=== PATIENT | female | born 1955 | race Caucasian/White ===

== ENCOUNTER 2020-05-26 14:43 | Observation (INO) | payer OTHER, SELFPAY ==
[~2020-05-26] VITALS: Ht 167.6 cm; Wt 104.3 kg
[2020-05-26 14:52] VITALS: BP 111/83
--- NOTE | 2020-05-26 14:53 | NUR ---
PT W/C ASSISTED TO BED 8.
[2020-05-26] MEDS ORDERED: NACL 0.9% 1,000 ML IV STA (15:09)
[2020-05-26] MEDS ORDERED: ASPIRIN 325 MG TAB PO ONE (15:10)
[2020-05-26] MEDS ORDERED: KETOROLAC 15 MG/ML VIAL IVP ONE (15:10)
[2020-05-26 15:43] LABS: BASOPHILS % (AUTO) 0.2 % (0.0-2.0); EOSINOPHILS % (AUTO) 0.1 % (0.0-4.0); HEMATOCRIT 43.1 % (36-48); HEMOGLOBIN 14.2 g/dL (12.0-16.0); LYMPHOCYTES % (AUTO) 12.6 % (20.5-51.1); MEAN CORPUSCULAR HEMOGLOBIN 32 pg (27-31); MEAN CORPUSCULAR HGB CONC 33 g/dL (33-37); MEAN CORPUSCULAR VOLUME 96.9 fL (80-94); MONOCYTES # (AUTO) 0.2 K/uL (0.8-1.0); MONOCYTES % (AUTO) 3.2 % (1.7-9.3); NEUTROPHILS # (AUTO) 6.6 K/uL (1.8-7.7); NEUTROPHILS % (AUTO) 83.9 % (42.2-75.2); PLATELET COUNT (AUTO) 155 K/uL (140-450); RED BLOOD CELL COUNT(AUTO) 4.44 MIL/uL (4.20-5.40); RED CELL DISTRIBUTION WIDTH 14.4 % (11.6-13.7); WHITE BLOOD COUNT (AUTO) 7.8 K/uL (4.8-10.8)
--- NOTE | 2020-05-26 15:49 | NUR ---
PT BROUGHT IN BY DAUGHTER FOR SOB AND COUGH X 3 DAYS. DAUGHTER STATES PT WAS AT [facility] AND JUST FINISHED AZITHROMYCIN TREATMENT BUT IS STILL HAVING DIFFICULTY WITH BREATHING AND SYMPTOMS. PT ALERT AND AWAKE, BREATHING TACHYPNEA RR 30, LUNGS WHEEZING ON EXPIRATION, SPO2 96% ON RA. SKIN WARM AND DRY. BED IN LOWEST POSITION, LOCKED, BED RAIL UPX1. PMH - DM2, HTN, AFIB, PARKINSONS, DEMENTIA ALLERGIES - SULFA, KEFLEX, MORPHINE
[2020-05-26 16:09] LABS: ALBUMIN 3.6 g/dL (3.4-5.0); ANION GAP 22.4 (8-16); CREATININE 1.1 mg/dL (0.6-1.3); POTASSIUM 4.4 mmol/L (3.5-5.1)
--- NOTE | 2020-05-26 16:13 | NUR ---
COVID, MARY, FLU, AND RSV SWABS SENT TO LAB
[2020-05-26 16:26] LABS: APPEARANCE,URINE CLEAR (CLEAR); BILIRUBIN,URINE NEGATIVE (NEGATIVE); BLOOD, URINE TRACE-I (NEGATIVE); COLOR,URINE YELLOW (YELLOW); LEUKOCYTE ESTERASE ,URINE NEGATIVE (NEGATIVE); NITRITE, URINE NEGATIVE (NEGATIVE); PH,URINE 5.5 (5.0-9.0); UGLUCOSE 3+ (NEGATIVE)
[2020-05-26 16:28] LABS: PROTHROMBIN TIME 10.4 secs (10.8-13.4)
[2020-05-26 16:36] LABS: RBC,URINE 0-5 /HPF (0-5); WBC,URINE 0-5 /HPF (0-5)
[2020-05-26] MEDS ORDERED: INSULIN REGULAR, HUMAN 100 UNIT/ML VIAL IV STA (16:42)
[2020-05-26] MEDS ORDERED: INSULIN REGULAR, HUMAN 100 UNIT/ML VIAL IVP STA (16:56)
[2020-05-26 17:05] LABS: RSV NEGATIVE (NEGATIVE)
--- NOTE | 2020-05-26 18:09 | NUR ---
PT RESTING WITH EYES CLOSED, BREATHING EVEN AND UNLABORED. NO DISTRESS NOTED.
--- NOTE | 2020-05-26 19:06 | NUR ---
REPORT GIVEN TO EMIR CRAWFORD, TRANSFER OF CARE AT THIS TIME
[2020-05-26] MEDS ORDERED: ONDANSETRON 4 MG/2 ML VIAL IVP PRN (19:15)
[2020-05-26] MEDS ORDERED: ALBUTEROL 0.083% 2.5 MG/3 ML NEBU INH PRN (19:15)
[2020-05-26] MEDS ORDERED: DEXTROSE 50% 50 ML SYR IVP PRN (19:20)
--- NOTE | 2020-05-26 19:28 | NUR ---
ASSUMED CARE FROM DAY RN. PT A/A/OX4, LAYING IN BED. NO SIGN AND SYMPTOMS OF DISTRESS NOTED. NO COMPLAIN AT THIS TIME. DAUGHTER DONI AT THE BEDSIDE. CALL LIGHT IN REACH.
--- NOTE | 2020-05-26 19:54 | NUR ---
RECEIVED AN ABNORMAL LAB VALUE FROM THE TATTOO TECHNICIAN RENDON REGARDING THE PT LATEST LACTIC ACID 2.6. DR BRADLEY NOTIFIED AND AWARE AND NO FURTHER ORDER GIVEN.
[2020-05-26] MEDS: ENOXAPARIN 40 MG/0.4 ML SYR SUBQ SCH ×2 (21:00→23:51)
--- NOTE | 2020-05-26 21:00 | NUR ---
PT WALKED TO THE BATHROOM TO URINATE AND TOLERATED IT WELL.
--- NOTE | 2020-05-26 22:30 | NUR ---
Patient will be admitted to care of Admited to TELEMETRY FLOOR. Will go to room 117. Belongings list completed. Report to YVETTE HERNANDEZ.
[2020-05-26 22:45] VITALS: BP 130/60
--- NOTE | 2020-05-26 22:45 | NUR ---
RECEIVED PT FROM ED, VIA CHUCK MEDINA, AO X 4, AMBULATORY. PT ABLE TO MAKE NEEDS KNOWN. W/ IV ON THE LEFT AC G 20, PATENT AND INTACT, SALINE LOCK. MRSA DONE. PHYSICAL EXAM DONE. PLACED IN A LOW Addendum: 05/27/20 at 0700 by Emmy Mueller RN PLACED IN A LOW BED, MRSA SWAB DONE, ORIENTED TO UNIT. CALL LIGHT WITHIN REACH. WILL CONTINUE TO MONITOR.
--- NOTE | 2020-05-26 22:45 | NUR ---
PER ENDORSEMENT OF MJ, ER LOVENOX 100 MG WAS NOT GIVEN YET. WILL ADMINISTER LATER.
[2020-05-26] MEDS: BLOOD GLUCOSE MONITORING 1 DEV DEV FS SCH (23:09)
--- NOTE | 2020-05-26 23:10 | NUR ---
PER PER ENDORSEMENT FROM ED, HUMULIN N WAS GIVEN, BUT IT IS SHOWING 6 UNITS WAS GIVEN ONLY. BLOOD GLUCOSE FOR 2100 TAKEN AT THIS TIME, AND PT'S BLOOD GLUCOSE LEVEL REVEALED 279 MG/DL, 6 HRS PAST FROM THE 6 UNITS THAT WAS GIVEN EARLIER, WILL VERIFY WITH . THE INSULIN(HUMALOG REGULAR) COVERAGE IF WILL GIVE BEFORE MIDNIGHT.
[2020-05-26] MEDS ORDERED: ENOXAPARIN 40 MG/0.4 ML SYR SUBQ ONE (23:45)
--- NOTE | 2020-05-27 00:01 | NUR ---
PT C/O OF PAIN IN THE CHEST LEFT SIDED AND RADIATING TO THE LEFT SHOULDER AND LEFT PART OF BACK. WILL INFORM DR. AVILES BUSINESS INTEGRATION MANAGER.
[2020-05-27] MEDS: INSULIN LISPRO SLIDING SCALE 100 UNITS/ML VIAL SUBQ PRN ×4 (00:06→17:02)
--- NOTE | 2020-05-27 00:09 | NUR ---
DR. AVILES ORDERED TORADOL 30 MG IV PUSH Q 6, SALINE LOCK ; INFORMED BLOOD GLUCOSE LEVEL = 279 PER HUMALOG PER SLIDING SCALE ANOTHER 6 UNITS TO BE GIVEN NOW.
[2020-05-27] MEDS ORDERED: KETOROLAC 30 MG/ML VIAL IVP PRN (00:40)
[2020-05-27] MEDS ORDERED: KETOROLAC 30 MG/ML VIAL ONE (00:42)
--- NOTE | 2020-05-27 00:44 | NUR ---
GAVE PT TORADOL 30 MG Q 6 PRN ORDERED, WILL REASSESS PATIENT
--- NOTE | 2020-05-27 02:00 | NUR ---
CHECKED ON PATIENT, ABLE TO AMBULATE, WENT TO THE BATHROOM BY HERSELF
[2020-05-27 04:00] VITALS: BP 120/58
--- NOTE | 2020-05-27 04:03 | NUR ---
PT SLEEPING, NO RESPIRATORY DISTRESS NOTED, DENIES PAIN.
[2020-05-27 05:45] LABS: BASOPHILS % (AUTO) 0.4 % (0.0-2.0); EOSINOPHILS % (AUTO) 0.1 % (0.0-4.0); HEMATOCRIT 39.4 % (36-48); HEMOGLOBIN 13.3 g/dL (12.0-16.0); LYMPHOCYTES % (AUTO) 23.9 % (20.5-51.1); MEAN CORPUSCULAR HEMOGLOBIN 32 pg (27-31); MEAN CORPUSCULAR HGB CONC 34 g/dL (33-37); MEAN CORPUSCULAR VOLUME 95.4 fL (80-94); MONOCYTES # (AUTO) 0.5 K/uL (0.8-1.0); MONOCYTES % (AUTO) 6.3 % (1.7-9.3); NEUTROPHILS # (AUTO) 5.8 K/uL (1.8-7.7); NEUTROPHILS % (AUTO) 69.3 % (42.2-75.2); PLATELET COUNT (AUTO) 151 K/uL (140-450); RED BLOOD CELL COUNT(AUTO) 4.13 MIL/uL (4.20-5.40); WHITE BLOOD COUNT (AUTO) 8.3 K/uL (4.8-10.8)
[2020-05-27] MEDS: BLOOD GLUCOSE MONITORING 1 DEV DEV FS SCH ×3 (05:56→16:59)
[2020-05-27] MEDS: ACETAMINOPHEN 325 MG TAB PO PRN ×2 (06:00→12:48)
[2020-05-27 06:09] LABS: ALBUMIN 3.1 g/dL (3.4-5.0); ANION GAP 10.8 (8-16); CARBON DIOXIDE 26.8 mmol/L (21-32); CREATININE 0.8 mg/dL (0.6-1.3); MAGNESIUM 2.1 mg/dL (1.8-2.4); POTASSIUM 3.6 mmol/L (3.5-5.1); TOTAL BILIRUBIN 0.9 mg/dL (0.0-1.0)
--- NOTE | 2020-05-27 06:37 | NUR ---
PT IN STABLE POSITION, PT BLOOD [id number] GIVEN HUMALOG PER PROTOCOL. AFIB ON TELEMETRY. PT AT THIS TIME A, A O X 4 AMBULATORY, WILL ENDORSE TO NEXT SHIFT.
--- NOTE | 2020-05-27 07:10 | NUR ---
RECEIVED ENDORSEMENT FROM ROLLING UP MACHINE OPERATOR, AWAKE, ALERT, ORIENTED X3, BREATHING SPONTANEOUSLY AT ROOM AIR, NOT IN DISTRESS NOTED. WITH IV CANNULA G 20 AT LEFT AC ON SALINE LOCK NOTED. SAFETY MEASURES IN PLACE AND CONTINUE MONITOR.
[2020-05-27 08:00] VITALS: BP 135/69
--- NOTE | 2020-05-27 08:54 | NUR ---
PATIENT HAS BEEN SCREENED AND CATEGORIZED MODERATE NUTRITION RISK. PATIENT WILL BE SEEN WITHIN 3-5 DAYS OF ADMISSION. 05/29/20 05/31/[address]
[2020-05-27] MEDS ORDERED: ENOXAPARIN 40 MG/0.4 ML SYR SUBQ SCH (09:00)
[2020-05-27] MEDS ORDERED: ASPIRIN 81 MG TAB.CHEW PO SCH (09:00)
[2020-05-27] MEDS ORDERED: ENOXAPARIN 100 MG/ML SYR SUBQ SCH ×2 (09:30→21:00)
--- NOTE | 2020-05-27 09:35 | NUR ---
FULLY AWAKE AND ALERT. DUE MEDICATION GIVEN
--- NOTE | 2020-05-27 11:20 | NUR ---
DC PLANNIN YRS OLD FEMALE PATIENT WAS ADMITTED FROM HOME WITH A DX OF CHEST PAIN. PT HAS A HX OF HTN, DM, A-FIB PARKINSON AND DEMENTIA . CXR SHOWED ENLARGED CARDIAC SILHOUETTE. RAPID COVID TEST AND PCR NEGATIVE. URINE AND BLOOD CULTURE PENDING. ADMINISTERED ACS PROTOCOL ,CONSULTED WITH FRUIT DRYER. DC PLAN TO GO HOME WHEN STABLE CM TO FOLLOW.
--- NOTE | 2020-05-27 11:23 | NUR ---
CONFRIMED WITH RN END TIME OF NORMAL SALINE END TIME OF 6858 05/26/20.
--- NOTE | 2020-05-27 11:25 | NUR ---
OILER HELPER NOTE: Patient's Orientation Unable To Assess Information Provided By DONI LAZARO - DAUGHTER Comments SW WAS UNABLE TO MEET PATIENT AT BEDSIDE DUE TO MEDICAL CONDITION. SW CONTACTED PATIENT'S DAUGHTER DONI TO COMPLETE ASSESSMENT AND VERIFY DEMOGRAPHICS. Orthopaedic Surgeon, Realtionship and Phone Number DONI LAZARO DAUGHTER [phone] Healthcare Power of Therapy Site Coordinator No Does Patient Have a POLST No Identifying Problems No Social Work Triggers Is A Social Work Consult Needed No Mandate Report Filed No Explanation Of Identifying Problems PATIENT IS A 64-YEAR-OLD FEMALE ADMITETD FOR CHEST PAIN. PATIENT HAS PMHX OF COPD, DIABETES, AND HYPERTENSION. DONI REPORTED THAT PATIENT RECEIVES MENTAL HEALTH SERVICES FROM PSYCHOLOGIST DR. CONSTANCE MATA. NO SUBSTANCE ABUSE HISTORY WAS REPORTED. Admitted From Home Pre-Admission Level Of Functioning Status Assist With ADL Level Of Functioning Comment PATIENT REQUIRES ASSISTANCE WITH BATHING, SHOWERING, PREPARING MEALS, AND DISPENSING MEDICATION. Prior Resources/Services Used In Last 12 Months [facility] Prior Resources/Service Comments PATIENT RECEIVES 104 HOURS MONTHLY FROM [facility]. Prior DME Cane Dialysis Comments DONI REPORTED THAT PATIENT DOES NOT RECEIVE DIALYSIS. Living Situation Lives With Family House Patient Had Caregiver Yes Name and Contact Number Of Designated Caregiver FAVIO BOWLES - [phone] Home Support No Caregiver Issues Financial Issues No Known Financial Issue Referral To The Financial Counselor Needed No Factors/Needs No D/C Needs Identified Pt/Rep Participated In Discharge Plan Yes Patient/Family Agress With Discharge Plan Yes Discharge Plan Comments TENTATIVE DISCHARGE PLAN IS FOR PATIENT TO RETURN HOME. DC Plan Status Initiated
[2020-05-27 12:00] VITALS: BP 137/71
--- NOTE | 2020-05-27 12:49 | NUR ---
COMPLAINED MILD LEFT SIDED CHEST PAIN 3/10, TYLENOL 650MG PO ORDERED PRN GIVEN. VITAL SIGNS TAKEN AND RECORDED. STABLE.
--- NOTE | 2020-05-27 14:07 | NUR ---
FULLY AWAKE AND WATCHING TV, NOT IN DISTRESS NOTED
[2020-05-27 16:00] VITALS: BP 116/76
--- NOTE | 2020-05-27 17:52 | NUR ---
DR. SCOTT MADE DISCHARGE ORDER AND CARRIED OUT. CARDIAC SIDE CAN BE DISCHARGE.
--- NOTE | 2020-05-27 18:30 | NUR ---
DISCHARGE PACKET INSTRUCTION PREPARED AND AWAITING FOR THE FAMILY TO RN GASTROENTEROLOGY. IV CANNULA REMOVED AND DRESSING APPLIED.
[2020-05-27 18:53] VITALS: BP 105/58
--- NOTE | 2020-05-27 19:30 | NUR ---
DISCHARGED IN STABLE CONDITION PER WHEELCHAIR ACCOMPANIED WELL TO THE HOSPITAL LOBBY, DAUGHTER INSTRUCTED TO FOLLOW THE PCP AFTER 1 WEEK AND VERBALIZED UNDERSTANDING. NO MEDICATION PRESCRIBE AND NEED TO GO CLINIC OF PCP FOR FOLLOW UP.
== END 2020-05-27 19:30 | disposition home or self-care (01) ==
LOC: MED 14:43 → MTU 19:17
PROVIDERS: ADMIT Internal Medicine; ATTEND Internal Medicine
DX: R07.89 Other chest pain (principal); Z20.828 Contact with and (suspected) exposure to other viral communicable diseases; R05 Cough; R06.02 Shortness of breath; I48.91 Unspecified atrial fibrillation; I11.9 Hypertensive heart disease without heart failure; M94.0 Chondrocostal junction syndrome [Tietze]; E11.9 Type 2 diabetes mellitus without complications; E66.9 Obesity, unspecified; R94.31 Abnormal electrocardiogram [ECG] [EKG]; G20 Parkinson's disease; F02.80 Dementia in other diseases classified elsewhere, unspecified severity, without behavioral disturbance, psychotic disturbance, mood disturbance, and anxiety; Z91.19 Patient's noncompliance with other medical treatment and regimen; Z79.01 Long term (current) use of anticoagulants; Z79.899 Other long term (current) drug therapy; Z88.1 Allergy status to other antibiotic agents; Z88.5 Allergy status to narcotic agent; Z88.2 Allergy status to sulfonamides; Z68.37 Body mass index [BMI] 37.0-37.9, adult
CPT/HCPCS: 36415; 71045; 80053; 81001; 82550; 82553; 82948; 83605; 83735; 83880; 84484; 85025; 85379; 85384; 85610; 85730; 87040; 87081; 87086; 87420; 87426; 87804; 93005; 96361; 96372; 96374; 96375; 99285; G0378; J1650; J1815; J1885; Q0092; U0003

== ENCOUNTER 2022-01-25 13:47 | Inpatient (IN) | payer OTHER ==
[~2022-01-25] VITALS: Ht 167.6 cm; Wt 84.8 kg
[2022-01-25 13:51] VITALS: BP 113/69
--- NOTE | 2022-01-25 14:19 | NUR ---
Saeid howell in [facility] - 01/25/22 at 1420 by KEVIN Patient ambulated to bed 11 with steady/even gait.
[2022-01-25] MEDS ORDERED: ONDANSETRON 4 MG/2 ML VIAL IVP ONE (14:30)
[2022-01-25] MEDS ORDERED: NACL 0.9% 1,000 ML IV SCH (14:30)
[2022-01-25] MEDS ORDERED: fentaNYL citrate 0.05 MG/ML VIAL IVP ONE (14:30)
--- NOTE | 2022-01-25 14:30 | NUR ---
66/F BIB DAUGHTER WITH C/O ABDOMINAL PAIN X3 DAYS, STATING BP AT HOME WAS 134/130 AT HOME AND BS WAS 200. REPORTS NAUSEA, HEADACHE AND DIARRHEA TODAY, DENIES FEVERS, CP, SOB. PATIENT STATES 9/10, PRESSURE/CONSTANT, NON-RADIATING PAIN. CELLULAR TOWER CLIMBER IN PLACE. BED LOCKED IN LOWEST POSITION, SIDE RAILS X 1. DAUGHTER AT BEDSIDE. PMH: HTN, DM, LIVER CANCER, AFIB, PARKINSONS, DEMENTIA ALLERGIES: CEPHALEXIN, MORPHINE, SULFAS
--- NOTE | 2022-01-25 14:31 | NUR ---
PMH: STAGE 1 LIVER CANCER (NOVEMBER/2021), HLD, HTN, DM, PARKINSONS ALLERGIES: SULFA, KEFLEX, MORPHIN (ARM SWELLING, ITCHINESS), LISINOPRIL (COUGH/CHOKE ON SALIVA) SX: CHOLECYSTECTOMY, HYSTERECTOMY, LAPAROTOMY
[2022-01-25 14:45] LABS: APPEARANCE,URINE CLEAR (CLEAR); BILIRUBIN,URINE 1+ (NEGATIVE); BLOOD, URINE TRACE-I (NEGATIVE); COLOR,URINE YELLOW (YELLOW); LEUKOCYTE ESTERASE ,URINE NEGATIVE (NEGATIVE); NITRITE, URINE NEGATIVE (NEGATIVE); UGLUCOSE 3+ (NEGATIVE)
[2022-01-25 14:47] LABS: BASOPHILS # (AUTO) 0.1 K/uL (0.00-0.22); BASOPHILS % (AUTO) 0.7 % (0.0-2.0); EOSINOPHILS # (AUTO) 0.1 K/uL (0-0.4); EOSINOPHILS % (AUTO) 0.8 % (0.0-4.0); HEMATOCRIT 45.1 % (36-48); HEMOGLOBIN 14.9 g/dL (12.0-16.0); LYMPHOCYTES # (AUTO) 1.4 K/uL (2.5-16.5); LYMPHOCYTES % (AUTO) 18.7 % (20.5-51.1); MEAN CORPUSCULAR HEMOGLOBIN 30 pg (27-31); MEAN CORPUSCULAR HGB CONC 33 g/dL (33-37); MEAN CORPUSCULAR VOLUME 89.6 fL (80-94); MONOCYTES # (AUTO) 0.6 K/uL (0.8-1.0); MONOCYTES % (AUTO) 8.1 % (1.7-9.3); NEUTROPHILS # (AUTO) 5.5 K/uL (1.8-7.7); NEUTROPHILS % (AUTO) 71.7 % (42.2-75.2); PLATELET COUNT (AUTO) 230 K/uL (140-450); RED BLOOD CELL COUNT(AUTO) 5.03 MIL/uL (4.20-5.40); RED CELL DISTRIBUTION WIDTH 16.8 % (11.6-13.7); WHITE BLOOD COUNT (AUTO) 7.7 K/uL (4.8-10.8)
[2022-01-25 14:58] LABS: ALBUMIN 3.8 g/dL (3.4-5.0); ANION GAP 13.9 (8-16); CARBON DIOXIDE 27.7 mmol/L (21-32); POTASSIUM 3.6 mmol/L (3.5-5.1); TOTAL BILIRUBIN 0.9 mg/dL (0.0-1.0)
[2022-01-25 15:03] LABS: RBC,URINE FEW /HPF (0-5); WBC,URINE 0-5 /HPF (0-5)
--- NOTE | 2022-01-25 15:10 | NUR ---
PATIENT TRANSPORTED TO CT VIA GURNEY.
--- NOTE | 2022-01-25 15:22 | NUR ---
PATIENT RETURNED FROM [facility] VIA [facility].
--- NOTE | 2022-01-25 15:26 | NUR ---
STATES MINOR RELIEF TO PAIN 8/10; MINOR RELIEF TO NAUSEA.
[2022-01-25] MEDS ORDERED: ATOR20TA PO (16:08)
[2022-01-25] MEDS ORDERED: [UNRECOGNIZED DRUG - CODE] PO (16:08)
[2022-01-25] MEDS ORDERED: RIVA20TA PO (16:08)
[2022-01-25] MEDS ORDERED: METO25TE2 PO (16:08)
[2022-01-25] MEDS ORDERED: METF-346 PO (16:08)
[2022-01-25] MEDS ORDERED: LIFI1DRO OP (16:37)
[2022-01-25] MEDS ORDERED: QUET100T PO (16:37)
[2022-01-25] MEDS ORDERED: CARB1TAB37 PO (16:37)
[2022-01-25] MEDS ORDERED: DONE10TA10 PO (16:37)
[2022-01-25] MEDS ORDERED: VENL37.55 PO (16:37)
[2022-01-25] MEDS ORDERED: LORA10TA19 PO (16:37)
[2022-01-25] MEDS ORDERED: GABA300C PO ×2 (16:38)
[2022-01-25] MEDS ORDERED: OMEP20EC11 PO (16:38)
[2022-01-25] MEDS ORDERED: MEMA10TA PO (16:38)
[2022-01-25] MEDS ORDERED: HYDR-5080 PO (16:38)
--- NOTE | 2022-01-25 16:56 | NUR ---
Patient awaken and states pain is tolerable; 7/10 at this time.
--- NOTE | 2022-01-25 16:56 | NUR ---
Patient resting in semi-fowlers position with both eyes closed. Daughter remains at bedside. manager search engine in place. RR 22; SpO2 97% on room air. Bed locked in lowest position, side rails x 1.
[2022-01-25] MEDS ORDERED: POTASSIUM CHLORIDE 10 MEQ TABER PO PRN (17:20)
[2022-01-25] MEDS ORDERED: MAGNESIUM OXIDE 400 MG TAB PO PRN (17:20)
[2022-01-25] MEDS ORDERED: ONDANSETRON 4 MG/2 ML VIAL IVP PRN (17:20)
[2022-01-25] MEDS ORDERED: MAG SULF 2000 MG/WATER PREMIX 50 ML IV PRN (17:20)
[2022-01-25] MEDS ORDERED: MORPHINE SULFATE 4 MG/ML SYR IVP PRN (17:20)
[2022-01-25] MEDS ORDERED: KCL 20 MEQ/WATER INJ PREMIX 200 ML IV PRN (17:20)
--- NOTE | 2022-01-25 17:41 | NUR ---
Pt c/o headache 05/02. Tylenol PO PRN to be given.
--- NOTE | 2022-01-25 17:41 | NUR ---
Jacey (daughter) [phone] Requesting to be contacted when transferred to [facility]
[2022-01-25] MEDS: ACETAMINOPHEN 325 MG TAB PO PRN (17:51)
[2022-01-25] MEDS: LACTATED RINGERS 1,000 ML IV SCH (18:01)
--- NOTE | 2022-01-25 18:01 | NUR ---
+ relief to headache. 10 pain. rug inspector helper remains in place. All pt needs met.
--- NOTE | 2022-01-25 19:11 | NUR ---
Patient asleep resting in position of comfort. regulatory affairs coordinator in place. VSS. Bed locked in lowest position, side rails x 1.
--- NOTE | 2022-01-25 19:14 | NUR ---
Report received from YVETTE Al. Continuity of pt carfe at this time.
--- NOTE | 2022-01-25 19:14 | NUR ---
Report and transfer of care endorsed to YVETTE Stover.
--- NOTE | 2022-01-25 19:20 | NUR ---
Pt laying in bed locked in lowest position w x2 siderails up for pt safety. pt reports feeling better, but has ongoing abdominal pain 03/01, does not want any pain medication at this time. denies ongoing nausea or other symptoms at this time. breathing even and ulabored. will continue to monitor. LR running at 150ml/hr to R ac, iv cath patent/intact.
--- NOTE | 2022-01-25 19:47 | NUR ---
Patient will be admitted to care of . Admited to MED-SURG. Will go to room 105A. Belongings list completed. Report to YVETTE LOREDO.
[2022-01-25 20:15] VITALS: BP 135/55
--- NOTE | 2022-01-25 20:15 | NUR ---
Admitted from ER TO [facility] , 56 YRS OLD FEMALE, COOPERATIVE with chief complaint of ABDOMINAL PAIN STARTED 3 DAYS AGO. A/OX4. LUNGS CLEAR ON BILATERAL AUSCULTATION. ABDOMEN SOFT, NON-TENDER TO TOUCH, WITH ACTIVE BOWEL SOUNDS ON ALL QUADRANTS. PAIN IN THE ABDOMEN DESCRIBED ON AND OFF PAIN, NON-RADIATING, INTENSITY 7/10 THAT IS NOT RELIEVED BY TAKING NORCO. AMBULATORY USING A CANE. HEAD TO TOE ASSESSMENT DONE WITH CHARGE NURSE FAUSTINO. DISCOLORATION NOTED ON THE LOWER RIGHT LEG. SKIN IS INTACT.oriented to call light, bed, phone,television, bathroom, smoking policy,visiting hours, procedures, ID bracelet on. Belongings list checked.
--- NOTE | 2022-01-25 20:30 | NUR ---
Patient's Plan of Care was discussed and reviewed with ABBY LOREDO.
[2022-01-25] MEDS: HYDROcodone/APAP 5/325 MG 1 TAB TAB PO PRN (23:00)
[2022-01-25] MEDS ORDERED: KETOROLAC 30 MG/ML VIAL IVP PRN (23:35)
--- NOTE | 2022-01-25 23:35 | NUR ---
INFORMED DR. TUCKER PATIENT IS CANNOT HAVE MORPHINE BECAUSE SHE IS ALLERGIC TO IT, ORDERED TORADOL INSTEAD OF MORPHINE.
[2022-01-26] VITALS: BP 108/68
--- NOTE | 2022-01-26 | NUR ---
SLEEPING COMFORTABLY IN BED, RESPIRATION EVEN AND UNLABORED.
[2022-01-26] MEDS ORDERED: KETOROLAC 30 MG/ML VIAL IVP PRN (01:20)
--- NOTE | 2022-01-26 02:00 | NUR ---
LYING ON HER RIGHT SIDE, SLEEPING. NO DISTRESS NOTED.
--- NOTE | 2022-01-26 03:50 | NUR ---
CHECKED PATIENT STILL SLEEPING COMFORTABLY IN BED.
[2022-01-26 04:00] VITALS: BP 126/67
[2022-01-26] MEDS: LACTATED RINGERS 1,000 ML IV SCH ×4 (04:52→21:23)
[2022-01-26] MEDS: ACETAMINOPHEN 325 MG TAB PO PRN (05:35)
--- NOTE | 2022-01-26 05:35 | NUR ---
WITH HEADACHE, MEDICATED WITH TYLENOL PER MD ORDER.
--- NOTE | 2022-01-26 06:35 | NUR ---
NO COMPLAINT OF HEADACHE, RESTING COMFORTABLY IN BED.
--- NOTE | 2022-01-26 07:00 | NUR ---
CONDITION REMAIN STABLE. WILL ENDORSE TO AM SHIFT NURSE FOR CONTINUITY OF CARE.
--- NOTE | 2022-01-26 07:02 | NUR ---
RECEIVED REPORT FROM AIRCRAFT RIVETER NURSE FOR CONTINUITY OF CARE. PT IN BED SLEEPING AT THIS TIME. RESPIRATIONS ARE EVEN AND UNLABORED ON ROOM AIR. NO SIGNS OF DISTRESS NOTED. PT IS ALERT AND ORIENTED X4, ABLE TO VERBALIZE IN [place], ABLE TO FOLLOW COMMANDS. PT IS NPO EXCEPT FOR MEDS AT THIS TIME. ABD IS NONTENDER, NONDISTENDED WITH BOWEL SOUNDS PRESENT. PT IS CONTINENT OF BOWEL AND BLADDER, ABLE TO AMBULATE TO REST ROOM WITH CANE. PT HAS IV TO RAC, 20G. SKIN IS WARM, DRY, AND INTACT. CALL LIGHT WITHIN REACH. ALL SAFETY MEASURES IN PLACE. WILL CONTINUE TO MONITOR.
[2022-01-26 07:30] LABS: BASOPHILS # (AUTO) 0.1 K/uL (0.00-0.22); BASOPHILS % (AUTO) 1.2 % (0.0-2.0); EOSINOPHILS # (AUTO) 0.1 K/uL (0-0.4); EOSINOPHILS % (AUTO) 2.5 % (0.0-4.0); HEMATOCRIT 40.4 % (36-48); HEMOGLOBIN 13.1 g/dL (12.0-16.0); LYMPHOCYTES # (AUTO) 1.9 K/uL (2.5-16.5); LYMPHOCYTES % (AUTO) 38.3 % (20.5-51.1); MEAN CORPUSCULAR HEMOGLOBIN 29 pg (27-31); MEAN CORPUSCULAR HGB CONC 33 g/dL (33-37); MEAN CORPUSCULAR VOLUME 90.4 fL (80-94); MONOCYTES # (AUTO) 0.4 K/uL (0.8-1.0); MONOCYTES % (AUTO) 8.8 % (1.7-9.3); NEUTROPHILS # (AUTO) 2.4 K/uL (1.8-7.7); NEUTROPHILS % (AUTO) 49.2 % (42.2-75.2); PLATELET COUNT (AUTO) 179 K/uL (140-450); RED BLOOD CELL COUNT(AUTO) 4.47 MIL/uL (4.20-5.40); RED CELL DISTRIBUTION WIDTH 16.5 % (11.6-13.7)
[2022-01-26 07:48] LABS: CARBON DIOXIDE 29.7 mmol/L (21-32); CREATININE 0.7 mg/dL (0.6-1.3); MAGNESIUM 1.7 mg/dL (1.8-2.4); POTASSIUM 3.7 mmol/L (3.5-5.1)
[2022-01-26 08:00] VITALS: BP 134/70
--- NOTE | 2022-01-26 08:00 | NUR ---
Patient's Plan of Care was discussed and reviewed with ABBY Clark
[2022-01-26] MEDS: ENOXAPARIN 40 MG/0.4 ML SYR SUBQ SCH (08:17)
--- NOTE | 2022-01-26 08:20 | NUR ---
ADMINISTERED ALL SCHEDULED MEDICATIONS. EDUCATED PT ON MEDS ADMINISTERED. PT VERBALIZED UNDERSTANDING. WILL CONTINUE TO MONITOR.
--- NOTE | 2022-01-26 09:12 | NUR ---
PATIENT HAS BEEN SCREENED AND CATEGORIZED LOW NUTRITION RISK. PATIENT WILL BE SEEN WITHIN 7 DAYS OF ADMISSION. 02/01/[address] Addendum: 01/26/22 at [address] REFERRAL RECEIVED NOT APPLICABLE
--- NOTE | 2022-01-26 12:25 | NUR ---
DR JOHNSON HERE TO SEE PT. PLACED ORDERS FOR NPO, PT SCHEDULED FOR I&D TONIGHT. WILL CONTINUE TO MONITOR. Addendum: 01/26/22 at 1357 by Amber Mix LVN DISREGARD THIS NOTE.
--- NOTE | 2022-01-26 12:36 | NUR ---
DID ROUNDS ON PT. FAMILY AT BEDSIDE. FAMILY REQUESTING UPDATE. GAVE UPDATE. ANSWERED ALL QUESTIONS. NO COMPLAINTS OF PAIN OR DISCOMFORT AT THIS TIME. WILL CONTINUE TO MONITOR.
--- NOTE | 2022-01-26 14:00 | NUR ---
DC PLANNING PATIENT IS A 66 YEAR OLD FEMALE ADMITTED IN THE [facility]/ED ON 01/25/2022. DUE TO ABDOMINAL PAIN FOR ABOUT 3 DAYS PATIENT HAS MEDICAL HISTORY OF PAROXYSMAL A FIB, HYPERTENSION TYPE 2 DIABETES,AND PARKINSON'S DISORDER. (PATIENT IS TURKS AND [place] ISLANDER SPEAKING). SW MET WITH PATIENT AT BEDSIDE TO DISCUSS AND GATHER PATIENT COLLATERAL INFORMATION, PATIENT WAS AWAKE AND ALERT ABLE TO PROVIDE HER OWN HISTORY PATIENT REPORTED LIVING AT HOME WITH HER ADULT DAUGHTER AND GRANDCHILDREN. REPORTED HAVING GOOD FAMILY SUPPORT. PER PATIENT SHE HAS A. D ALREADY IN PLACE DONE BY HER DAUGHTER AND WAS NOT INTERESTED ON GETTING INF. FORMS PROVIDED BY [facility]. PER PATIENT HER DAUGHTER DONI LAZARO IS HER EMERGENCY CONTACT AND HER MEDICAL DECISION MAKER. PER PATIENT SHE HAS A PCP DR. HARSHAL KOROMA THAT VISITS IN [facility] LAST APPOINTMENT WAS ABOUT A MONTH AGO. WHEN [facility] OFFERED PATIENT TO MAKE A FOLLOW UP APPOINTMENT FOR PATIENT WITH HER PCP AFTER HER DISCHARGE FROM [facility] PATIENT DECLINED AND STATED THAT HER DAUGHTER DONI WILL MAKE HER APPOINTMENT. PER PATIENT SHE HAS NO ISSUES GETTING HER MEDICATION FROM THE [facility] IN [facility]. PATIENT ALSO REPORTED HAVING A CANE AND A WALKER HER ONLY DME AT HOME. PATIENT STATED THAT WHEN SHE IS READY FOR DISCHARGE HER DAUGHTER WILL BE PICKING HER UP AND TAKE HER HOME. SW WILL FOLLOW UP NEEDED.
--- NOTE | 2022-01-26 15:39 | NUR ---
PT STATES SHE FEELS A LITTLE MORE TIRED THAN USUAL. ASKED FOR ASSISTANCE TO REST ROOM. ASSISTED PT TO RESTROOM. PT TOLERATED WELL. WILL CONTINUE TO MONITOR.
[2022-01-26 16:00] VITALS: BP 137/69
--- NOTE | 2022-01-26 16:01 | NUR ---
DC PLANNIN YRS OLD FEMALE PATIENT WAS ADMITTED FROM HOME WITH A DX OF ACUTE PANCREATITIS. PT HAS A HX OF HTN, DM, A-FIB PARKINSON AND DEMENTIA . CT ABD/PELVIS SHOWED ISODENSE LESION ARISING FROM THE LEFT KIDNEY MAY REPRESENT HEMORRHAGIC CYST OR SOLID LESIONS. RENAL US SHOWED LEFT RENAL CYST NO HYDRONEPHROSIS. RAPID COVID TEST NEGATIVE. URINE AND BLOOD CULTURE PENDING. ADMINISTERED IVF AND PAIN MEDS WITH NORCO. DC PLAN TO GO HOME WHEN STABLE CM TO FOLLOW.
[2022-01-26] MEDS: HYDROcodone/APAP 5/325 MG 1 TAB TAB PO PRN (16:18)
--- NOTE | 2022-01-26 17:20 | NUR ---
PT WAS GIVEN NORCO AT 1618. WENT TO RE-ASSES PT PAIN LEVEL. PT SLEEPING AT THIS TIME. WILL CONTINUE TO MONITOR.
--- NOTE | 2022-01-26 19:15 | NUR ---
ENDORSED PT TO UNPAID INTERN NURSE FOR CONTINUITY OF CARE. PT IS STABLE.
--- NOTE | 2022-01-26 19:16 | NUR ---
RECEIVED PATIENT IN BED ALERT AND ORIENTED X 4. PATIENT WAS ENDORSED BY MICHELLE MORA. NEW IV LINE WAS STARTED ON LEFT HAND WITH 24 MIAN NEEDLE. PATIENT TOLERATED IT WELL. PATIENT WAS STABLE BREATHING ON ROOM AIR. PATIENT HAD NO COMPLAINTS OF PAIN/DISCOMFORT. SIDE RAIL UP X 2. BED AT THE LOWEST POSITION AND CALL LIGHT WITHIN REACH. [id number]
--- NOTE | 2022-01-26 23:17 | NUR ---
PATIENT WAS NOTED IN BED ASLEEP. CHEST RISING AND FALLING WITHOUT DISTRESS. CALL LIGHT WITHIN REACH. [email or web address]
[2022-01-27] VITALS: BP 137/69
--- NOTE | 2022-01-27 01:55 | NUR ---
PATIENT WAS NOTED IN BED ASLEEP. CHEST RISING AND FALLING WITHOUT DISTRESS. CALL LIGHT WITHIN REACH. [email or web address]
[2022-01-27] MEDS: LACTATED RINGERS 1,000 ML IV SCH ×2 (03:01→09:33)
[2022-01-27] MEDS: HYDROcodone/APAP 5/325 MG 1 TAB TAB PO PRN (03:06)
--- NOTE | 2022-01-27 03:08 | NUR ---
PATIENT WAS NOTED IN BED ASLEEP. CHEST RISING AND FALLING WITHOUT DISTRESS. CALL LIGHT WITHIN REACH. [email or web address]
--- NOTE | 2022-01-27 05:08 | NUR ---
PATIENT WAS NOTED IN BED ASLEEP. CHEST RISING AND FALLING WITHOUT DISTRESS. CALL LIGHT WITHIN REACH. [email or web address]
--- NOTE | 2022-01-27 07:31 | NUR ---
ENDORSED TO AVELINA RN SHIFT NURSE. PATIENT WAS STABLE AT CHANGE OF SHIFT. [email or web address]
[2022-01-27 07:40] LABS: BASOPHILS % (AUTO) 0.7 % (0.0-2.0); EOSINOPHILS # (AUTO) 0.1 K/uL (0-0.4); EOSINOPHILS % (AUTO) 2.4 % (0.0-4.0); HEMATOCRIT 39.5 % (36-48); HEMOGLOBIN 12.9 g/dL (12.0-16.0); LYMPHOCYTES # (AUTO) 1.5 K/uL (2.5-16.5); LYMPHOCYTES % (AUTO) 28.3 % (20.5-51.1); MEAN CORPUSCULAR HEMOGLOBIN 30 pg (27-31); MEAN CORPUSCULAR HGB CONC 33 g/dL (33-37); MEAN CORPUSCULAR VOLUME 90.1 fL (80-94); MONOCYTES # (AUTO) 0.4 K/uL (0.8-1.0); MONOCYTES % (AUTO) 7.3 % (1.7-9.3); NEUTROPHILS # (AUTO) 3.3 K/uL (1.8-7.7); NEUTROPHILS % (AUTO) 61.3 % (42.2-75.2); PLATELET COUNT (AUTO) 164 K/uL (140-450); RED BLOOD CELL COUNT(AUTO) 4.39 MIL/uL (4.20-5.40); RED CELL DISTRIBUTION WIDTH 16.5 % (11.6-13.7); WHITE BLOOD COUNT (AUTO) 5.4 K/uL (4.8-10.8)
[2022-01-27 07:41] LABS: CARBON DIOXIDE 29.8 mmol/L (21-32); CREATININE 0.6 mg/dL (0.6-1.3); MAGNESIUM 1.7 mg/dL (1.8-2.4); POTASSIUM 3.8 mmol/L (3.5-5.1); TOTAL BILIRUBIN 0.9 mg/dL (0.0-1.0)
[2022-01-27 08:00] VITALS: BP 123/67
[2022-01-27] MEDS ORDERED: HYDR-5080 PO (09:03)
[2022-01-27] MEDS: ENOXAPARIN 40 MG/0.4 ML SYR SUBQ SCH (09:14)
[2022-01-27 15:24] VITALS: BP 132/79
--- NOTE | 2022-01-27 16:10 | NUR ---
IV REMOVED WITH CATHETER INTACT, DAUGHTER AT BEDSIDE TO DRIVE PATIENT HOME, PATIENT LEFT DEPARTMENT WITH NO S/S OF ACUTE DISTRESS, PATIENT AND FAMILY VERBALIZED UNDERSTANDING OF DISCHARGE INSTRUCTIONS
== END 2022-01-27 16:10 | disposition home or self-care (01) | DRG 440 ==
LOC: MED 13:47 → MTU 17:20
PROVIDERS: ADMIT Student in an Organized Health Care Education/Training Program; ATTEND Student in an Organized Health Care Education/Training Program
DX: K85.90 Acute pancreatitis without necrosis or infection, unspecified (principal); I48.0 Paroxysmal atrial fibrillation; I10 Essential (primary) hypertension; E11.9 Type 2 diabetes mellitus without complications; G20 Parkinson's disease; E78.5 Hyperlipidemia, unspecified; E86.1 Hypovolemia; Z20.822 Contact with and (suspected) exposure to COVID-19; Z88.1 Allergy status to other antibiotic agents; Z88.5 Allergy status to narcotic agent; Z88.2 Allergy status to sulfonamides; Z79.899 Other long term (current) drug therapy; Z85.05 Personal history of malignant neoplasm of liver; Z90.49 Acquired absence of other specified parts of digestive tract; Z79.01 Long term (current) use of anticoagulants
CPT/HCPCS: 36415; 76770; 80053; 81001; 83036; 83690; 83735; 84478; 85025; 87081; 96361; 96374; 96375; 99285; J1650; J2405; J3010; J7030; Q0092

== ENCOUNTER 2022-12-29 17:45 | Emergency (ER) | payer OTHER ==
[~2022-12-29] VITALS: Ht 167.6 cm; Wt 88.9 kg
[~2022-12-29 17:45] MED LIST: ATOR20TA PO; CARB1TAB37 PO; DONE10TA10 PO; GABA300C PO; HYDR-5080 PO; LIFI1DRO OP; LORA10TA19 PO; MEMA10TA PO; METF-346 PO; METO25TE2 PO; OMEP20EC11 PO; QUET100T PO; RIVA20TA PO; VENL37.55 PO; [UNRECOGNIZED DRUG - CODE] PO
[2022-12-29 17:56] VITALS: BP 143/69
--- NOTE | 2022-12-29 18:10 | NUR ---
TO ER BED 1
--- NOTE | 2022-12-29 18:21 | NUR ---
PT BIB DAUGHTER, C/O DIARRHEA X 10 DAYS WORSEN TODAY W/ODOR, 6 BM TODAY. DAUGHTER STATES PT WAS AT HOSPITAL WITH HER BEST FRIEND W/POSITIVE C-DIFF, WANTS PT TESTED. SAFETY MAINTAINED.
--- NOTE | 2022-12-29 18:41 | NUR ---
Note dante in EDM - 12/29/22 at 1844 by [email or web address] Patient does not wish to proceed with medical care recommended by DR ROBERTS. Patient given information related to possible complications, up to and including , which could occur as a result of leaving hospital at this time. Patient verbalizes understanding of risks involved leaving against medical advice. Patient REFUSED TO SIGN AMA FORM.
--- NOTE | 2022-12-29 18:44 | NUR ---
PT SEEN BY DR ROBERTS, PT LEFT WITHOUT DC INSTRUCTIONS OR PAPERWORK.
[2022-12-29] MEDS ORDERED: LOPE-289 PO (18:50)
== END 2022-12-29 18:45 | disposition home or self-care (01) ==
LOC: MED 17:45
DX: R19.7 Diarrhea, unspecified (principal); I25.10 Atherosclerotic heart disease of native coronary artery without angina pectoris; E11.9 Type 2 diabetes mellitus without complications; I10 Essential (primary) hypertension; Z85.05 Personal history of malignant neoplasm of liver; Z79.4 Long term (current) use of insulin; Z79.899 Other long term (current) drug therapy
CPT/HCPCS: 99281